=== PATIENT | male | born 1990 | race Caucasian/White ===

== ENCOUNTER 2019-07-13 11:10 | Emergency (ER) | payer BC ==
--- OUTSIDE RECORDS SUMMARY | 2019-07-13 11:27 | XMS REPORT | Continuity of Care Document ---
:1990 External Reference #:[id number] Author Name Valerie An, SIMONA Address [address] [facility] [place] [address] Care Team Providers Name Role Phone Enrique Sage MD - Family Medicine Care Team Information Measurement Specialist [phone] Problems Description No Information Available Social History Type Date Description Comments Sex Unknown Tobacco Use Start: Unknown Nonsmoker ETOH Use Occasional Recreational Drug Use Denies Drug Use Tobacco Use Start: Unknown Patient has never smoked Smoking Status Reviewed: 06/18/19 Patient has never smoked Allergies, Adverse Reactions, Alerts Active Allergies Reaction Severity Comments Date Amoxicillin Rash 06/27/2019 Inactive Allergies Nkma 06/04/2009 NKDA 06/18/2019 Medications Active Medications SIG Qnty Indications Ordering Provider Date Dicyclomine HCL take one by 30caps R10.10 Valerie An, 06/27/2019 10mg mouth every 4-6 TACK PICKER Capsules hours as needed for pain History Medications Peppermint Oil Take one by 30caps R10.10 Valerie An, 06/27/2019 - 50mg mouth daily TACK PICKER 06/27/[address] Peppermint Oil R10.10 Valerie An, 06/27/2019 - Oil TACK PICKER 06/27/2019 No Active Unknown 06/27/2019 - Medications 06/27/2019 No Active Unknown 02/15/2019 - Medications 06/27/2019 Immunizations CPT Code Status Date Vaccine Lot # [id number] Given 11/16/2004 Meningococcal Conjugate Vaccine,Serogroups For Intramuscular Use 40529 Given 12/18/2002 Td Immunization, For Use In Individuals 7 Years Or Older 56174 Given 01/18/1994 IPV Inactive Poliovirus Vaccine 18422 Given 01/18/1994 MMR Virus Immunization 64377 Given 01/18/1994 DTP Immunization 41083 Given 11/11/1992 Hepatitis B Immunization, -19 Years 29630 Given 07/15/1992 Hepatitis B Immunization, -19 Years 39027 Given 06/18/1992 Hepatitis B Immunization, Barney-19 Years 64078 Given 12/04/1991 Varicella (Chicken Pox) Immunization 86564 Given 10/10/1990 DTP Immunization 64986 Given 10/10/1990 IPV Inactive Poliovirus Vaccine 18536 Given 03/08/1990 MMR Virus Immunization 39655 Given 03/08/1990 (Hib) Hemoplilus Influenza B 62495 Given 11/01/1989 DTP Immunization 88921 Given 06/28/1989 IPV Inactive Poliovirus Vaccine 03376 Given 06/28/1989 DTP Immunization 06371 Given 02/07/1989 IPV Inactive Poliovirus Vaccine 73365 Given 02/07/1989 DTP Immunization Vital Signs Date Vital Result Comment 06/27/2019 2:46pm BP Systolic 140 mmHg BP Diastolic 80 mmHg Heart Rate 80 /min Body Temperature 98.4 F Respiratory Rate 18 /min Weight 179.00 lb 06/18/2019 3:26pm BP Systolic 118 mmHg BP Diastolic 76 mmHg Heart Rate 68 /min Body Temperature 98.7 F Respiratory Rate 16 /min Height 70.75 inches 5'10.75" Weight 181.00 lb BMI (Body Mass Index) 25.4 kg/m2 Results Test Acquired Date Facility Test Result H/L Range Note Ua - Non Micro (Fma) 06/18/2019 family medicine Appearance clear (607)- - Color yellow Glucose, Urine (Fma/[facility]/CTX) - Bilirubin - Ketones - SP Grav 1.025 Blood - PH 6.5 Protein - Urobil 0.2 Nitrite - Leukocytes (Fma/[facility]rex) - Procedures Description No Information Available Medical Devices Description No Information Available Encounters Type Date Location Provider Dx Diagnosis Office Visit 06/18/2019 [facility] Juliane Ramos, R10.12 Left upper quadrant 3:15p PA pain Office Visit 02/15/2019 [facility] Office Tamica Biggs, K21.9 Gastro-esophageal 1:30p IT [employer]GER reflux disease without esophagitis Assessments Date Code Description Provider 06/27/2019 R10.10 Upper abdominal pain, unspecified Valerie An, TACK PICKER 06/27/2019 R10.30 Lower abdominal pain, unspecified Valerie An, TACK PICKER 06/18/2019 R10.12 Left upper quadrant pain GERARD Abbasi 02/15/2019 K21.9 Gastro-esophageal reflux disease without Tamica Biggs, IT HELP DESK MANAGER esophagitis Plan of Treatment 06/27/2019 - Valerie An, NPR10.10 Upper abdominal pain, unspecifiedNew Medication:Dicyclomine HCL 10 mg - take one by mouth every 4-6 hours as needed for painPeppermint Oil 50 mg - Take one by mouth dailyPeppermint Oil -Comments :Try daily pepperment oil capsule as well.If these measures don't help, and especially if you are worse, try to come back to see Dr. Sage.R10.30 Lower abdominal pain, unspecifiedAllComments:1. Patient has been queried about patient's goals/preferences and functional/lifestyle goals at relevant visits. If relevant, describe: Has been discussed, noted above2. Treatment goals as explainedto the patient: see above3. Are there barriers to meeting treatment goals? Yes If Yes, please describe: Barriers include possible insurance limits, disease process, and difficulty with lifestyle changes4. Self- Management goals as described to the patient: Yes, see above As always, we strongly encourage a healthy diet and making physical activity a part of your every day life. If you have questions about how or where to start, please contact the office. Functional Status Description No Information Available Mental Status Description No Information Available Referrals Description No Information Available
[2019-07-13 11:37] LABS: ABS Lymphocytes 1.7 10^3/ul (1.0-4.8); ABS Monocytes 0.3 10^3/ul (0-0.8); ABS Neutrophils 2.7 10^3/ul (1.5-7.7); Eosinophil % 0.7 %; Hematocrit 43 % (42-52); Hemoglobin 15.1 g/dL (14.0-18.0); Lymphocyte % 36.5 %; Mean Corpuscular HGB Conc 35 g/dL (31-36); Mean Corpuscular Hemoglobin 29 pg (27-31); Mean Corpuscular Volume 82 fL (80-94); Mean Platelet Volume 8.9 fL (7.4-10.4); Nucleated Red Blood Cells % 0.1; Platelet Count 199 10^3/uL (150-450); Red Cell Distribution Width 13 % (10-15); White Blood Count 4.8 10^3/uL (3.5-10.8)
[2019-07-13 11:42] LABS: INR 1.03 (0.82-1.09)
[2019-07-13 11:53] LABS: Albumin 4.6 g/dL (3.2-5.2); Albumin/Globulin Ratio 1.5 (1-3); Calcium 9.5 mg/dL (8.6-10.3); EGFR African American 97.1 (>60); EGFR Non-African American 80.3 (>60); Potassium 3.8 mmol/L (3.5-5.0); Total Protein 7.6 g/dL (6.4-8.9)
--- NOTE | 2019-07-13 11:58 | ED ---
Complex/Multi-Sys Presentation - HPI Summary HPI Summary: This patient is a 28 year old M presenting to [facility] with a chief complaint of chest pain since 1 wk ago since today 07/13/19. Symptoms aggravated by nothing. Symptoms alleviated by nothing. Pt reports started feeling burning with acid in the back of throat leading to him taking Tums as he thought it was heart burn. Reports pain went down in center near sternum but went away after 4 days and moved to his left upper chest. Reports past 3-4 days arms feel offdescribed as tightness/numbness in bicep in forearm and fingertips tingling that started on his left arm but went away and then moved to his right arm for past 2-3 days. Denies n/v, trouble breathing, diaphoresis, fever, cough, pain or swelling in legs. Denies heart attack fmhx, shx, mhx (has prescription propanol for anxiety). Denies drug use, smoking, but drinks occasionally. - History Of Current Complaint Chief Complaint: EDChestPainROMI Time Seen by Provider: 07/13/19 11:46 Hx Obtained From: Patient Onset/Duration: Lasting Weeks, Still Present Timing: Constant Aggravating Factor(s): nothing Alleviating Factor(s): nothing Associated Signs And Symptoms: Positive: Chest Pain, Other - numbness/tingling in arms and fingertips; denies difficulty breathing, swelling in legs. Negative : Cough, Nausea, Vomiting, Fever, Diaphoresis - Allergies/Home Medications Allergies/Adverse Reactions: Allergies Allergy/AdvReac Type Severity Reaction Status Date / Time amoxicillin Allergy Rash Verified 07/13/19 11:56 Home Medications: Home Medications Propranolol 20 mg TAB [Inderal 20 mg TAB] 20 mg PO DAILY PRN 07/13/19 [History Confirmed 07/13/19] PMH/Surg Hx/FS Hx/Imm Hx Endocrine/Hematology History: Denies: Hx Diabetes Cardiovascular History: Denies: Hx Hypertension Sensory History: Reports: Hx Contacts or Glasses Opthamlomology History: Reports: Hx Contacts or Glasses - Surgical History Surgery Procedure, Year, and Place: none Infectious Disease History: No Infectious Disease History: Denies: Traveled Outside the [place] in Last 30 Days - Family History Known Family History: Positive: Diabetes Review of Systems Negative: Fever, Skin Diaphoresis Positive: Chest Pain Positive: Other - denies difficulty breathing. Negative: Cough Negative: Vomiting, Nausea Positive: Other - numbness/tingling in arms and fingertips; denies pain or swelling in legs All Other Systems Reviewed And Are Negative: Yes Physical Exam - Summary Physical Exam Summary: Constitutional: Well-developed, Well-nourished, Alert. (-) Distressed Skin: Warm, Dry HENT: Normocephalic; Atraumatic Eyes: Conjunctiva normal Neck: Musculoskeletal ROM normal neck. (-) JVD, (-) Stridor, (-) Tracheal deviation Cardio: Rhythm regular, rate normal, Heart sounds normal; Intact distal pulses; Radial pulses are 2+ and symmetric. (-) Murmur Pulmonary/Chest wall: Effort normal. (-) Respiratory distress, (-) Wheezes, (-) Rales Abd: Soft, (-) tenderness, (-) Distension, (-) Guarding, (-) Rebound Musculoskeletal: (-) Edema Lymph: (-) Cervical adenopathy Neuro: Alert, Oriented x3 Psych: Mood and affect Normal Triage Information Reviewed: Yes Vital Signs On Initial Exam: Initial Vitals Temp Pulse Resp BP Pulse Ox 98.0 F 121 19 155/89 100 07/13/19 11:17 07/13/19 11:17 07/13/19 11:17 07/13/19 11:17 07/13/19 11:17 Vital Signs Reviewed: Yes Procedures - Sedation Patient Received Moderate/Deep Sedation with Procedure: No Diagnostics - Vital Signs Vital Signs Temp Pulse Resp BP Pulse Ox 07/13/19 11:17 98.0 F 121 19 155/89 100 - Laboratory Lab Results: Lab Results 07/13/19 07/13/19 07/13/19 Range/Units 11:28 11:28 11:40 WBC 4.8 (3.5-10.8) 10^3/uL RBC 5.20 (4.18-5.48) 10^6 /uL Hgb 15.1 (14.0-18.0) g/dL Hct 43 (42-52) % MCV 82 (80-94) fL MCH 29 (27-31) pg MCHC 35 (31-36) g/dL RDW 13 (10-15) % Plt Count 199 (150-450) 10^3/uL MPV 8.9 (7.4-10.4) fL Neut % (Auto) 55.7 % Lymph % (Auto) 36.5 % Mower % (Auto) 6.4 % Eos % (Auto) 0.7 % Baso % (Auto) 0.7 % Absolute Neuts (auto) 2.7 (1.5-7.7) 10^3/ul Absolute Lymphs (auto) 1.7 (1.0-4.8) 10^3/ul Absolute Monos (auto) 0.3 (0-0.8) 10^3/ul Absolute Eos (auto) 0.0 (0-0.6) 10^3/ul Absolute Basos (auto) 0.0 (0-0.2) 10^3/ul Absolute Nucleated RBC 0.0 10^3/ul Nucleated RBC % 0.1 INR (Anticoag Therapy) 1.03 (0.82-1.09) Influenza A (Rapid) Pending Influenza B (Rapid) Pending Result Diagrams: 07/13/19 11:28 07/13/19 11:28 Lab Statement: Any lab studies that have been ordered have been reviewed, and results considered in the medical decision making process. - Radiology Chest X-Ray Radiology Interpretation Completed By: Radiologist Summary of Radiographic Findings: Per radiologist,. NO EVIDENCE FOR ACTIVE CARDIOPULMONARY DISEASE. ED physician has reviewed this imaging report. - EKG 1112 Cardiac Rate: NL - 107 BPM EKG Rhythm: Sinus Tachycardia Summary of EKG Findings: EKG taken at 1112 reveals sinus tachycardia at 107 BPM , no evidence of for ischemia, 1 PVC. Re-Evaluation - Re-Evaluation First Eval Re-Evaluation Time: 12:48 Complex Multi-Symp Course/Dx Course Of Treatment: Patient is here with chest pain off and on for the past couple of days. Patient is overall well-appearing upon arrival. Patient had an EKG with no ischemic changes. Patient had a negative troponin. Patient is wells score 0 with a negative d-dimer. Patient had a negative chest x-ray. Patient was deemed not to have an emergent condition and was discharged with PCP follow-up - Diagnoses Provider Diagnoses: Chest pain Discharge ED - Sign-Out/Discharge Documenting (check all that apply): Patient Departure - discharge - Discharge Plan Condition: Stable Disposition: HOME Prescriptions: Omeprazole 20 mg PO QAM #14 capsule. Patient Education Materials: Chest Pain (ED) Referrals: Enrique Sage MD [Primary Care Provider] - Additional Instructions: your tests today came back negative for heart attack, blood clot, any other emergent conditions Please start taking your prescribed medication as I think this is related to acid reflux Please avoid eating spicy foods, acidic foods, alcohol, caffeine, eating within 3 hours of bedtime Please return to the emergency department immediately if you have severe chest pain accompanied with trouble breathing, nausea, profuse sweating - Billing Disposition and Condition Condition: STABLE Disposition: Home - Attestation Statements Document Initiated by Ole: Yes Documenting Scribe: Adrianna Blount Provider For Whom Ole is Documenting (Include Credential): Dr. Colby Jara MD Scribe Attestation: Adrianna Benítez scribed for Dr. Colby Jara MD on 07/13/19 at 2054. Scribe Documentation Reviewed: Yes Provider Attestation: The documentation as recorded by the Adrianna earl accurately reflects the service I personally performed and the decisions made by me, Dr. Colby Jara MD Status of Scribe Document: Viewed
[2019-07-13 12:03] LABS: Influenza A Molecular Negative (Negative); Influenza B Molecular Negative (Negative)
[2019-07-13 13:22] VITALS: BP 148/84
== END 2019-07-13 13:21 | disposition home or self-care (01) ==
LOC: ED 11:10
DX: R07.9 Chest pain, unspecified (principal); Z88.0 Allergy status to penicillin
CPT/HCPCS: 36415; 71046; 80053; 84484; 85025; 85379; 85610; 93005; 99282